=== PATIENT | male | born 1970 | race Caucasian/White ===

== ENCOUNTER 2025-06-15 17:33 | Emergency (ER) | payer BC, OTHER ==
[~2025-06-15] VITALS: Ht 180.3 cm; Wt 74.8 kg
[2025-06-15] MEDS ORDERED: LIDOCAINE 5% (PATCH) 1 EA PATCH TP ONE (18:41)
[2025-06-15] MEDS ORDERED: KETOROLAC TROMETHAMINE 15 MG/ML VIAL ONE (18:41)
[2025-06-15] MEDS ORDERED: ACETAMINOPHEN ES 500 MG TABLET ONE (18:41)
[2025-06-15] MEDS: KETOROLAC TROMETHAMINE 15 MG/ML VIAL IM ONE (18:48)
[2025-06-15] MEDS: LIDOCAINE 5% (PATCH) 1 EA PATCH TP SCH (18:48)
[2025-06-15] MEDS: ACETAMINOPHEN ES 500 MG TABLET PO ONE (18:48)
[2025-06-15] MEDS ORDERED: LIDO15CR6 TP (19:48)
[2025-06-15 20:46] VITALS: BP 139/85; TEMP 98; O2SAT 99
== END 2025-06-15 20:47 | disposition home or self-care (01) ==
LOC: ER 17:35
DX: S39.012A Strain of muscle, fascia and tendon of lower back, initial encounter (principal); S66.812A Strain of other specified muscles, fascia and tendons at wrist and hand level, left hand, initial encounter; R51.9 Headache, unspecified; R07.9 Chest pain, unspecified; V43.52XA Car driver injured in collision with other type car in traffic accident, initial encounter; Y93.89 Activity, other specified; Y92.488 Other paved roadways as the place of occurrence of the external cause; Y99.8 Other external cause status
CPT/HCPCS: 99285; 70486; 71045; 96372; 72100; 73060; J1885